=== PATIENT | male | born 1980 | race Two or more races ===

== ENCOUNTER 2016-11-20 00:49 | Emergency (ER) | payer BC ==
--- NOTE | ~2016-11-20 | ER ---
PATIENT'S NAME: [facility] AGE: 36 Y [address] ROOM: [place] [address] LOCATION: ED ADMIT DATE: 11/20/2016 ER/Outpatient Report DISCHARGE DATE: FAMILY PHYSICIAN: Cliff Rivera MD ATTENDING PHYSICIAN: Elenita Trinidad Admission date and time documented in the medical record. I saw the patient at 0100 hours. CHIEF COMPLAINT: Left anterior chest pain. HISTORY OF PRESENT ILLNESS: This patient is a 36-year-old male, who about 1 hour ago woke up with discomfort in his left chest and some tingling and pain down his left arm. No nausea, vomiting, diarrhea. No recent cold, coughs, flus, fever, chills. Did get a little bit diaphoretic and short of breath. Strong family history in early age males of having heart problems. Had similar episodes like this in the past. He had a stress test done in, I believe May of this year, that was normal. He has restricted his diet. He has cut out caffeine, nicotine, alcohol, spicy greasy foods. HOME MEDICATIONS: See attached medication list. ALLERGIES: NONE. SOCIAL HISTORY: Nonsmoker, nondrinker. SIGNIFICANT PAST MEDICAL HISTORY: Gastroesophageal reflux and dyslipidemia with elevated cholesterol. OPERATIONS: None. REVIEW OF SYSTEMS: All systems reviewed by me are negative with the exception of those discussed in the history of the present illness. PHYSICAL EXAMINATION: VITAL SIGNS: Temperature 98.2 tympanic, pulse 59, respirations 18, blood pressure 152/93, O2 saturation on room air is 96%. Kwesi Coma Scale 15. HEAD: Normocephalic. PATIENT'S NAME: [facility] AGE: 36 Y [address] ROOM: [place] [address] LOCATION: ED ADMIT DATE: 11/20/2016 ER/Outpatient Report DISCHARGE DATE: FAMILY PHYSICIAN: Cliff Rivera MD ATTENDING PHYSICIAN: Elenita Trinidad EYES, EARS, NOSE, THROAT: Clear. NECK: Negative. SPINE: Negative. LUNGS: Clear. HEART: Regular. ABDOMEN: Soft. Nontender. Good bowel tones. No organomegaly or abnormal mass palpable. Chest wall nontender to palpation. EXTREMITIES: Intact. Neurovascularly intact. SKIN: Clear. DIAGNOSTIC DATA: EKG x2, 2 hours apart showed sinus rhythm. No acute ST elevation, ischemic change, or arrhythmia. Point of care cardiac enzymes x2, 2 hours apart were normal. CPK x2, 2 hours apart was normal. Chest x-ray showed no acute infiltrate or changes. We will review x-ray with the radiologist. CMS was normal except for a slightly elevated glucose 104, elevated AST of 54, magnesium was 2.5, CPK was 226. White count 7600, 47 segs, 44 lymphs, 7 monos, 2 eos, hemoglobin 16.3, hematocrit 48.3, platelet count 258 1000. PTT was 27, pro-time is 10 with an INR 0.95. EMERGENCY DEPARTMENT COURSE: We did give the patient a GI cocktail orally with improvement in his chest discomfort. Also, gave the patient Toradol 30 mg IV in the emergency department. IMPRESSION: Left anterior chest pain radiating to the left shoulder down the left arm with some tingling in the fingertips. Etiology uncertain at this time. Doubt that this is pulmonary or cardiovascular. Most likely, it is GI related or musculoskeletal related. PLAN: The patient dismissed home. Observation. Activity as tolerated. Continue present home medications and care. Continue restricted diet. Toradol 10 mg 1 every 6 hours x12 doses. Follow up with personal physician as scheduled or as needed. Discussion ensued with the patient regarding my findings and recommendations, he understands. ELENITA TRINIDAD MD [facility] AGE: 36 Y [address] ROOM: [place] [address] LOCATION: [facility] ADMIT DATE: 11/20/2016 ER/Outpatient Report DISCHARGE DATE: FAMILY PHYSICIAN: Cliff Rivera MD ATTENDING PHYSICIAN: Elenita Trinidad/modl /[id number] d: 11/20/16 0351 t: 11/20/16 1808, OUTPATIENT REPORT
[2016-11-20 01:11] LABS: BASOPHIL % 0.4 %; EOSINOPHIL # 0.1 K/uL (0.0-0.5); EOSINOPHIL % 1.7 %; HEMATOCRIT 48.3 % (37.0-53.0); HEMOGLOBIN 16.3 g/dL (12.0-17.0); IMMATURE GRANULOCYTE % 0.1 %; LYMPHOCYTE # 3.3 K/uL (0.8-4.0); LYMPHOCYTE % 43.6 %; MCH 29.6 pg (27.0-34.0); MCHC 33.7 gm/dL (32.0-36.5); MCV 87.8 fl (83.0-98.0); MONOCYTE # 0.5 K/uL (0.0-1.0); MONOCYTE % 6.8 %; MPV 10.4 fl (9.4-12.4); NEUTROPHIL # (ANC) 3.6 K/uL (1.4-9.0); NEUTROPHIL % 47.4 %; NRBC % 0 /100WBC (0-0.00); PLATELET COUNT 258 K/uL (150-450); RDW-CV 13.7 % (11.9-14.6); WBC 7.6 K/uL (4.0-11.0)
[2016-11-20 01:24] LABS: INR - (THERAPEUTIC) 0.95 (0.92-1.07); PTT 27 SECONDS (25-32)
[2016-11-20 01:32] LABS: ALK PHOS 103 IU/L (33-138); ALT 76 IU/L (12-78); ANION GAP 10.8 (10.0-19.0); AST 54 IU/L (10-40); BLOOD UREA NITROGEN 14 mg/dL (6-24); CALCIUM 8.6 mg/dL (8.5-10.5); CHLORIDE 105 mMol/L (96-110); CO2 27 mMol/L (22-32); CPK 226 IU/L (35-332); CREATININE 1.1 mg/dL (0.6-1.3); ESTIMATED GFR (MDRD EQUATION) > 60; MAGNESIUM 2.5 mg/dL (1.8-2.6); POTASSIUM 3.8 mMol/L (3.7-5.1); SODIUM 139 mMol/L (135-145); TOTAL BILIRUBIN 0.4 mg/dL (0.0-1.5); TOTAL PROTEIN 7.8 g/dL (6.0-8.4)
[2016-11-20 03:16] LABS: CPK 196 IU/L (35-332)
[2016-12-03] MEDS ORDERED: AMOXICILLIN500 MG PO (14:02)
[2016-12-03] MEDS ORDERED: LIPITOR40 MG PO (14:03)
[2016-12-04] MEDS ORDERED: PROTONIX40 MG PO (14:17)
== END 2016-11-20 03:44 | disposition disaster alternative care site (69) ==
LOC: GMED 00:49
PROVIDERS: Emergency Medicine
DX: R07.89 Other chest pain (principal); K21.9 Gastro-esophageal reflux disease without esophagitis; E78.00 Pure hypercholesterolemia, unspecified; Z79.899 Other long term (current) drug therapy
CPT/HCPCS: J1885

== ENCOUNTER → 2016-12-06 | Day surgery (SDC) | payer BC ==
[~2016-12-06] VITALS: Ht 157.5 cm; Wt 70.8 kg
[~2016-12-06] MED LIST: AMOXICILLIN500 MG PO; LIPITOR40 MG PO; PROTONIX40 MG PO
== END | disposition disaster alternative care site (69) ==
LOC: GPOC 12-03 13:00 → GEND 07:51 → GPOC 13:00
PROC: 0DB68ZX Excision of Stomach, Via Natural or Artificial Opening Endoscopic, Diagnostic (ICD-10-PCS; principal; 2016-12-06)
DX: R07.9 Chest pain, unspecified (principal); Z98.1 Arthrodesis status
CPT/HCPCS: J2001; J7030